=== PATIENT | female | born 1935 | race Caucasian/White ===

== ENCOUNTER 2019-02-13 10:38 | Inpatient (IN) | payer OTHER ==
[~2019-02-13] VITALS: Ht 157.5 cm; Wt 81.6 kg
--- NOTE | 2019-02-13 11:02 | NUR ---
PT BIB [facility] FOR GENERALIZED WEAKNESS AND UTI SYMPTOMS X 3 DAYS. 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 PT AAOX3 CONFUSED TO SITUATION FOLLOWS COMMANDS. NO NEURO DEFICITS, PT GOWNED PLACED ON FULL CM NO DISTRESS. AWAITING EVAL AND ORDERS. WILL MONITOR.
--- NOTE | 2019-02-13 11:37 | NUR ---
PT WITH URGE TO VOID, BED ECKERT PLACED UNDER PT.
--- NOTE | 2019-02-13 11:55 | NUR ---
URINE COLLECTED SENT TO LAB
--- NOTE | 2019-02-13 12:11 | NUR ---
EKG IN PROGRESS
[2019-02-13 12:23] LABS: AMPHETAMINE QUAL UR NONE DETECTED (See below)
[2019-02-13 12:26] LABS: CALCIUM 8.5 mg/dL (8.5-10.1); CARBON DIOXIDE 25.7 mmol/L (21-32); CHLORIDE SERUM 103 mmol/L (98-107); CREATININE SERUM 0.6 mg/dL (0.6-1.0); GLUCOSE SERUM 108 mg/dL (74-106); POTASSIUM SERUM 3.3 mmol/L (3.5-5.1); SODIUM SERUM 139 mmol/L (136-145)
[2019-02-13 12:27] LABS: microscopic required? YES; urine erythrocyte TRACE (NEGATIVE)
--- NOTE | 2019-02-13 12:35 | NUR ---
IVF AND ANTIBIOTIC INFUSION ORDERED BY MD INFUSING WITH NO PROBLEM
[2019-02-13 12:37] LABS: ALBUMIN 3.7 g/dL (3.4-5.0); ALKALINE PHOSPHATASE 98 U/L (46-116); ALT/SGPT 37 U/L (14-59); AST/SGOT 24 U/L (15-37); BILIRUBIN TOTAL 0.85 mg/dL (0.20-1.00); HDL CHOLESTEROL 53 mg/dL (40-60); LIPASE 47 IU/L (73-393); MAGNESIUM 1.8 mg/dL (1.8-2.4); TOTAL PROTEIN, SERUM 7.7 g/dL (6.4-8.2)
[2019-02-13 12:40] LABS: CHOLESTEROL 97 mg/dL (<200)
--- NOTE | 2019-02-13 13:18 | NUR ---
PT WARM TO TOUCH. ORAL TEMPERATURE CHECKED 100.7, MD MADE AWARE.
--- NOTE | 2019-02-13 13:18 | NUR ---
PT REPORTS THAT SHE IS UNCOMFORTABLE IN [facility]. PT ASSISTED TO CHAIR AT BEDSIDE. PT'S DAUGHTERS REMAIN AT BEDSIDE.
[2019-02-13 13:24] LABS: BASOPHIL % 0.4 % (0-2); PLATELET COUNT 236 x10^3mcL (130-400); RED CELL DISTRIBUTION WIDTH 12.9 % (11.5-14.5)
--- NOTE | 2019-02-13 13:40 | NUR ---
ALL BLANKETS REMOVED FROM PT. DR PRO AWARE OF PTS TEMP OF 100.7 NO ORDERS GIVEN AT THIS TIME. WILL CONTINUE TO MONITOR
--- NOTE | 2019-02-13 14:55 | NUR ---
PER DAUGHTER PT HAS " A LOT OF BODY PAIN" PT NOTED TO BE SLEEPING HOWEVER PER DAUGHTER SHE WOULD LIKE HER MOTHER MEDICATED WITH A "SMALL DOSE OF MORPHINE" SO SHE CAN BE COMFORTABLE, ADVISED DAUGHTER I WOULD SPEAK TO ER MD REGARDING HER REQUEST.
--- NOTE | 2019-02-13 15:06 | NUR ---
PT MEDICATED WITH TORADOL 15MG IVP PER DR PRO ORDERS FAMILY MADE AWARE, INFLUENZA SPECIMEN COLLECTED AND SENT TO LAB
--- NOTE | 2019-02-13 15:18 | NUR ---
REPORT SULTANA GILLILAND RESUMING CARE OF PT AT THIS TIME
--- NOTE | 2019-02-13 15:19 | NUR ---
RECEIVED PT VIA GURNEY FROM E/D, ACCOMPANIED BY RN, TRANSPORTER, PT'S DAUGHTER AND . PT AWAKE, ORIENTED X 1 (PERSON ONLY), SLOW SPEECH, SHORT TERM MEMORY IMPAIRMENT, FLAT AFFECT; PT ABLE TO STATE BASIC NEEDS; STATED THAT SHE WANTED TO GO TO THE RESTROOM TO URINATE. DAUGHTER AND PROCEEDED TO HELP PT GET UP, BUT NOTED THAT PT IS MOSTLY WEIGHT AND ABLE TO TAKE SHUFFLING STEPS W/ UNSTEADY GAIT, REQUIRING MINIMUM OF THREE PEOPLE TO ASSIST. PT IS AMBULATORY W/ 1-PERSON ASSIST AT BASELINE. BSC WAS GIVEN INSTEAD. FALL RISK PROTOCOL IN PLACE. ON TELE # 1, SR + 1ST DEG AVB, HR 83, DENIES CHEST PAIN OR DISCOMFORT AT THIS TIME. SCD BY BEDSIDE. LUNGS DIM, CHEST RISING EVENLY, R/A, 94%, ORTHOPNEA, NO ACUTE RESPIRATORY DISTRESS NOTED. ABD SOFT, ROUND, NON-TENDER, NORMOACTIVE BOWEL SOUNDS X 4 QUADS, LAST BM 02/13/19, DIARRHEA; ASPIRATION RISK PROTOCOL IN PLACE D/T EPISODES OF CHOKING ON PILLS; CRUSH PILLS & MIX W/ APPLE SAUCE; POOR PO INTAKE > 3 DAYS. EPISODES OF URGE/STRESS INCONTINENCE, ALONG W/ FREQUENCY AND DYSURIA. IV SITE RAC 20G, CDI. PT UNABLE TO PARTICIPATE IN ANY LEARNING ACTIVITY THIS TIME D/T ALOC. SIDE RAILS UP X 2, BED IN LOW POSITION, CALL LIGHT WITHIN REACH. WILL ENDORSE TO DARSHANA VALERO.
--- NOTE | 2019-02-13 16:01 | NUR ---
PATIENT BP WAS 190/83 MAP 108 HR 83, MEDICATED PATIENT WITH CLONIDINE .1MG PO PER PROTOCOL, PATIENT TOLERATED PO MEDICATION. WILL REASSESS BP, AND MONITOR FOR CHANGES.
[2019-02-13 16:11] VITALS: BP 190/83
[2019-02-13 17:01] VITALS: BP 138/65
--- NOTE | 2019-02-13 17:01 | NUR ---
PATIENT BP TRENDED DOWN TO 138/65 MAP 81 HR 71, NO ACUTE DISTRESS NOTED. PATIENT IS STABLE, WILL CONTINUE TO MONITOR FOR CHANGES.
--- NOTE | 2019-02-13 18:30 | NUR ---
PATIENT RESTING IN BED, NO ACUTE DISTRESS NOTED. PATIENT DENIES PAIN. TELE MONITOR IN PLACE. NO RESP DISTRESS, PATIENT ON ROOM AIR. ANTIBIOTICS INFUSING TO RAC, IV SITE CDI & PATENT, NO S/S OF INFILTRATION. CALL LIGHT WITHIN REACH, BED IN LOW POSITION. WILL ENDORSE REPORT TO NIGHT RN.
--- NOTE | 2019-02-13 19:30 | NUR ---
RECEIVED REPORT FROM SULTANA GILLILAND. PT WAS SLEEPING IN BED AT THIS TIME WITH DAUGHTER AT BEDSIDE. PT IS AAOX1-PERSON. PT HAS SLOW SPEECH AND IS BAHAMIAN SPEAKING. PT HAS A FLAT AFFECT. PT DENIES HEADACHE OR DIZZINESS AT THIS TIME. PT IS ON TELE #1, NSR WITH HR 80. PT DENIES CHEST PAIN OR PRESSURE AT THIS TIME. PT PULSES ARE PALPABLE AND CAP REFILL <3 SEC. PT HAS BILATERAL DIMINISHED LUNG SOUNDS ON RA. PT HAS ORTHOPNEA. PT DENIES SOB OR RESPIRATORY DISTRESS AT THIS TIME. PT ABD IS SOFT AND ROUND. PT BOWEL SOUNDS ACTIVE X4. PT LBM-02/13/19, DIARRHEA. PT DENIES N/V AT THIS TIME. PT HAS A POOR INTAKE AND IS ON ASPIRATION PRECAUTIONS AT THIS TIME. PT HAS EPISODES OF URGE/STRESS INCONTINENCE, FREQUENCY, AND DYSURIA. PT HAS GENERALIZED WEAKNESS AND IS BEDBOUND AT THIS TIME. PT SKIN IS WARM, DRY, AND INTACT. PT IV IS PATENT AND WNL. CALL LIGHT WITHIN REACH. BED IN LOWEST POSITION. SIDE RAILS X2 UP. WILL CONTINUE TO MONITOR.
[2019-02-13 21:42] VITALS: BP 143/56
--- NOTE | 2019-02-13 22:15 | NUR ---
PT HAD ORAL TEMP OF 101.3F. PER MAR, ADMINISTERED TYLENOL FOR TEMP >100.4F. ALSO REMOVED LAYERS OF BLANKETS AND TURNED ON AC FOR COOLING MEASURES. WILL REASSESS TEMP IN ONE HOUR.
--- NOTE | 2019-02-13 23:55 | NUR ---
REASSESSED PT TEMP ORALLY AFTER COOLING MEASURES WERE IMPLEMENTED AND TYLENOL WAS GIVEN. TEMP HAS DECREASED TO 99.9F. WILL CONTINUE TO MONITOR.
--- NOTE | 2019-02-14 04:36 | NUR ---
PT IS SLEEPING. BREATHING IS EVEN AND UNLABORED. IVF INFUSING WELL. FAMILY AT BEDSIDE. CALL LIGHT WITHIN REACH. BED IN LOWEST POSITION. SIDE RAILS X2 UP. WILL CONTINUE TO MONITOR.
--- NOTE | 2019-02-14 05:02 | NUR ---
PT SLEPT THROUGHOUT THE NIGHT. FAMILY AT BEDSIDE DURING THE SHIFT. PT COMPLIED WITH NURSING CARE THROUGHOUT THE SHIFT. PT HAD A FEVER OF 101.3F, BUT IT DECREASED TO 99.9F AFTER COOLING MEASURES WERE IMPLEMENTED AND TYLENOL WAS ADMINISTERED PER MAY. ROUTINE MEDS WERE ADMINISTERED PER MAY AND TOLERATED WELL. COMFORT AND SAFETY MEASURES WERE MAINTAINED DURING THE SHIFT. ALL QUESTIONS AND CONCERNS ADDRESSED. WILL ENDORSE CARE TO DAY SHIFT NURSE. WILL CONTINUE TO MONITOR.
[2019-02-14 05:31] VITALS: BP 148/67
[2019-02-14 06:41] LABS: BASOPHIL % 0.4 % (0-2); PLATELET COUNT 191 x10^3mcL (130-400); RED CELL DISTRIBUTION WIDTH 12.7 % (11.5-14.5)
--- NOTE | 2019-02-14 07:10 | NUR ---
RECEIVED PATIENT FROM PROFESSOR OF JOURNALISM NURSE, NAN, C/O GENERALIZED WEAKNESS. POTASSIUM RESULTS CAME IN WITH 2.9. CALLED DR. PANCHAL AND REPORTED K RESULTS. T.O. KCL +LIDOCAINE 40MEQ, WITH KCL 40MEQ TAB PO. VITAL SIGNS BP 137/87, HR 66, T 98F, 93% O2 SAT. CALL LIGHT WITHIN REACH. BED AT LOWEST POSITION.
[2019-02-14 07:12] LABS: ALKALINE PHOSPHATASE 83 U/L (46-116); ALT/SGPT 46 U/L (14-59); AST/SGOT 39 U/L (15-37); BILIRUBIN TOTAL 0.8 mg/dL (0.20-1.00); CALCIUM 8.1 mg/dL (8.5-10.1); CARBON DIOXIDE 23.8 mmol/L (21-32); CHLORIDE SERUM 104 mmol/L (98-107); CREATININE SERUM 0.7 mg/dL (0.6-1.0); GLUCOSE SERUM 113 mg/dL (74-106); MAGNESIUM 1.8 mg/dL (1.8-2.4); SODIUM SERUM 139 mmol/L (136-145); TOTAL PROTEIN, SERUM 6.5 g/dL (6.4-8.2)
[2019-02-14 07:14] LABS: ALBUMIN 3.1 g/dL (3.4-5.0)
[2019-02-14 07:15] LABS: POTASSIUM SERUM 2.9 mmol/L (3.5-5.1)
--- NOTE | 2019-02-14 07:24 | NUR ---
RECEIVED FROM ROBOTIC MACHINE OPERATOR NURSE LOW POTASSIUM LAB RESULTS 2.[address] PANCHAL ABOUT POTASSIUM RESULTS. T.O KCL +LIDOCAINE 40MEQ/L AT 65CC/HR AND KCL TABLET 40MEQ.
[2019-02-14 08:52] VITALS: BP 137/87
--- NOTE | 2019-02-14 10:28 | NUR ---
SEEN PATIENT LYING DOWN AOX PERSON AND PLACE. PATIENT FEELS WEAK. PO MEDICATIONS GIVEN. KCL +LIDOCAINE INFUSING AT 65CC/HR IVPB. TOLERATED PO MEDICATIONS. IV INTACT AND PATENT . NO REDNESS OR INFILTRATION. CALL LIGHT WITHIN REACH . BED AT LOWEST POSITION.
--- NOTE | 2019-02-14 11:45 | NUR ---
SEEN PATIENT LYING DOWN , CHILLS AND C/O BACK PAIN ASSOCIATED WITH DYSURIA. 10/09. HYDROCODONE GIVEN FOR BACK PAIN. CALL LIGHT WITHIN REACH . BED AT LOWEST POSITION.
--- NOTE | 2019-02-14 12:02 | NUR ---
SEEN PATIENT WITH CHILLS, BACK PAIN AND DYSURIA 10/09. BLANKET PROVIDED. DR PANCHAL MADE AWARE OF SIDE EFFECT OF CODEINE ON PATIENT, NERVOUSNESS AND VOMITING. HYDROCODONE DISCONTINUED. TORADOL 15MG IV GIVEN Q6H T.O. PER DR PANCHAL.
--- NOTE | 2019-02-14 12:29 | NUR ---
SEEN LYING DOWN AOX4, MILD CHILLS, TORADOL IVP GIVEN. NO C/O PAIN AT BACK. DEFECATED WITH BROWN WATERY STOOL. AFTER CARE DONE BY S.O. ACCUCHECK DONE WITH CBG 114. NO INSULIN NEEDED. CALL LIGHT WITHIN REACH BED AT LOWEST POSITION.
--- NOTE | 2019-02-14 15:56 | NUR ---
SEEN PATIENT AOX4, NO SUBJECTIVE COMPLAINTS, NO CHILLS , NO PAIN. VANCOMYCIN TROUGH AT 10.6. CALLED PHARMACY AND VERIFIED TO GIVE VANCOMYCIN IVPB. VANCOCIN INFUSING WELL WITH NO REDNESS OR INFILTRATION AT IV SITE. ACCUCHECK DONE WITH CBG 135. CALL LIGHT WITHIN REACH. BED AT LOWEST POSITION.
[2019-02-14 17:00] VITALS: BP 119/48
--- NOTE | 2019-02-14 18:29 | NUR ---
SEEN PATIENT AOX4, NO SUBJECTIVE COMPLAINTS. IV ZOSYN MEDICATIONS GIVEN AT 100CC/HR. IV PATENT AND INFUSING WELL. NO REDNESS OR INFILTRATION. CALL LIGHT WITHIN REACH. BED AT LOWEST POSITION.
--- NOTE | 2019-02-14 19:15 | NUR ---
RECEIVED PT IN BED RESTING WITH FAMILY AT BEDSIDE.LUNG SOUND CTA. BREATHING EVEN AND UNLABORED. DENIES ANY PAIN AT THIS TIME.IV SITE PATENT AND INTACT. BED IN LOWEST POSITION.CALL LIGHT WITHIN REACH. WILL CONTINUE TO MONITOR.
[2019-02-14 20:27] VITALS: BP 152/69
--- NOTE | 2019-02-14 21:19 | NUR ---
PT C/O PAIN UPON URINATION. MEDICATED TORADOL 15MG IVP ORDERED. WILL CONTINUE TO MONITOR.
--- NOTE | 2019-02-14 22:06 | NUR ---
PT ASLEEP. NO C/O PAIN AT THIS TIME. DAUGHTER AT BEDSIDE. WILL CONTINUE TO MONITOR.
[2019-02-14 22:12] VITALS: Ht 157.5 cm; Wt 81.6 kg
[2019-02-15 05:03] VITALS: BP 145/62
--- NOTE | 2019-02-15 05:08 | NUR ---
PT APPEARS TO BE SLEEPING.NO DISTRESS NOTED. NO INDICATION OF PAIN AT THIS TIME.BED IN LOWEST POSITION,CALL LIGHT WITHIN REACH. WILL CONTINUE TO MONITOR.
[2019-02-15 06:11] LABS: BASOPHIL % 0.5 % (0-2); PLATELET COUNT 196 x10^3mcL (130-400); RED CELL DISTRIBUTION WIDTH 12.8 % (11.5-14.5)
[2019-02-15 06:12] LABS: ALKALINE PHOSPHATASE 80 U/L (46-116); ALT/SGPT 46 U/L (14-59); AST/SGOT 34 U/L (15-37); CARBON DIOXIDE 24.9 mmol/L (21-32); CHLORIDE SERUM 107 mmol/L (98-107); CREATININE SERUM 0.8 mg/dL (0.6-1.0); GLUCOSE SERUM 135 mg/dL (74-106); MAGNESIUM 1.9 mg/dL (1.8-2.4); POTASSIUM SERUM 3.3 mmol/L (3.5-5.1); SODIUM SERUM 142 mmol/L (136-145); TOTAL PROTEIN, SERUM 6.6 g/dL (6.4-8.2)
[2019-02-15 06:32] LABS: ALBUMIN 3.1 g/dL (3.4-5.0)
--- NOTE | 2019-02-15 06:32 | NUR ---
PT C/O PAIN UPON URINATION. MEDICATED TYLENOL 650MG PO ORDERED. WILL CONTINUE TO MONITOR.
--- NOTE | 2019-02-15 07:10 | NUR ---
RECEIVED PATIENT FROM QUOTATION CHECKER NURSE. SEEN LYING DOWN AWAKE, COHERENT AND RESPONSIVE. MEDSURG. C/O NUMBING LEG PAIN. SCD IN PLACE. PATIENT VERBALIZED PAIN TO BE BETTER. IV INTACT AND INFUSING WELL. NO REDNESS OR INFILTRATION. CALL LIGHT WITHIN REACH. BED AT LOWEST POSITION.
--- NOTE | 2019-02-15 07:22 | NUR ---
SPOKE TO DR FERGUSON REGARDING K:3.3. NEW ORDER GIVEN AND CARRIED OUT.
--- NOTE | 2019-02-15 07:23 | NUR ---
CARE ENDORSED TO DAY NURSE RAPHAEL.
[2019-02-15 07:45] LABS: CALCIUM 8.8 mg/dL (8.5-10.1)
[2019-02-15 08:32] VITALS: BP 132/60
--- NOTE | 2019-02-15 09:38 | NUR ---
DR. FERGUSON SEEN PATIENT AND DISCUSSED ON PHYSICAL THERAPY. RESULTS SHOWN MAGNESIUM 1.8MG/DL. ORDERED MAGNESIUM FOR LOW RESULTS.
--- NOTE | 2019-02-15 14:02 | NUR ---
SEEN PATIENT AOX4, NO SUBJECTIVE COMPLAINTS OF PAIN, DYSURIA, HAS INCONTINENCE. BP 136/57, HR 63. NIFEDIPINE GIVEN PO. CALL LIGHT WITHIN REACH . BED AT LOWEST POSITION
[2019-02-15 16:30] VITALS: BP 134/54
--- NOTE | 2019-02-15 16:44 | NUR ---
SEEN PATIENT AOX4, C/O INCONTINENCE. QUESTIONS ADDRESSED TO FAMILY MEMBERS. ACCUCHECK DONE WITH SBG 119. NO INSULIN NEEDED. CALL LIGHT WITHIN REACH . BED AT LOWEST POSITION.
--- NOTE | 2019-02-15 19:15 | NUR ---
PT RECEIVED A/O X2, FORGETFUL AND CONFUSED, DJIBOUTIAN SPEAKING, ABLE TO MAKE NEEDS KNOWN. MED-SURG, DENIES ANY CP/PRESSURE. PULSES PALPABLE, NO EDEMA PRESENT. BREATHING IS EVEN AND UNLABORED, NO RESP DISTRESS NOTED. ABD SOFT AND ROUND, DENIES N/V. VOIDS FREELY VIA BEDPAN, PT REPORTS URINARY FREQUENCY/URGENCY. GENERALIZED WEAKNESS. SKIN IS WARM AND DRY, INTACT. PT DENIES HAVING ANY PAINA T THIS TIME. IV TO RAC, PATENT AND INTACT. NO ACUTE DISTRESS NOTED. DAUGHTER AT BEDSIDE. BED IN LOWEST SETTING, SIDE RAILS UP X2, CALL LIGHT WITHIN REACH. WILL CONT TO MONITIOR.
[2019-02-15 20:23] VITALS: BP 150/61
--- NOTE | 2019-02-15 22:32 | NUR ---
PER PT'S DAUGHTER, PT IS HAVING A DIFFICULT TIME FALLING ASLEEP. PRN AMBIEN GIVEN ORDERED. PT'S DAUGHTER REQUESTING ONLY HALF THE DOSE BE GIVEN AND STATES, "THE WHOLE DOSE IS TOO STRONG FOR HER." PER DR COTA, OKAY TO ONLY GIVE HALF THE ORDERED DOSE.
--- NOTE | 2019-02-16 01:25 | NUR ---
PT CONT TO C/O DIFFICULTY SLEEPING. PRN AMBIEN GIVEN ORDERED. NO ACUTE DISTRESS NOTED. CALL LIGHT WITHIN REACH. DAUGHTER AT BEDSIDE. WILL CONT TO MONITOR.
--- NOTE | 2019-02-16 02:18 | NUR ---
PER PT'S DAUGHTER, IV SITE IS LEAKING. IV TO RAC, DC'd, CATH INTACT. ATTEMPTED IV REINSERTION X2 WITH NO SUCCESS. PER PT'S DAUGHTER, "CAN YOU TRY ANOTHER TIME? SHE'S REALLY TIRED AND NEEDS HER SLEEP." EDUCATED PT AND DAUGHTER ON NEED FOR IV INSERTION, DAUGHTER VERBALIZES UNDERSTANDING, BUT INSISTENT OF REINSERTION AT A LATER TIME. NO IV SITE PRESENT. WILL REATTEMPT LATER PER PT'S REQUEST. NO ACUTE DISTRESS NOTED. WILL CONT TO MONITOR.
--- NOTE | 2019-02-16 05:02 | NUR ---
ATTEMPTED TO REINSERT IV, BUT PT'S DAUGHTER REFUSED AT THIS TIME. PER PT'S DAUGHTER, "SHE JUST HAD HER BLOOD DRAWN, AND SHE'S TIRED OF GETTING POKED. I JUST WANT HER TO GET A LITTLE MORE SLEEP BEFORE YOU GUYS TRY AGAIN." EDUCATED PT AND DAUGHTER THAT PT WILL HAVE IV ABX DUE TODAY AT 0900 AND WILL NEED IV ACCESS. PER DAUGHTER, "THAT'S FINE, YOU CAN TRY AGAIN AT 8:00 AFTER SHE GETS MORE REST." NO IV PRESENT AT THIS TIME DUE TO PT AND DAUGHTER REQUESTING IV REINSERTION AT A LATER TIME. CHARGE NURSE AWARE, WILL ENDORSE TO AM NURSE.
[2019-02-16 05:33] VITALS: BP 142/64
[2019-02-16 06:35] LABS: CALCIUM 8.6 mg/dL (8.5-10.1); CARBON DIOXIDE 24.2 mmol/L (21-32); CHLORIDE SERUM 109 mmol/L (98-107); CREATININE SERUM 0.6 mg/dL (0.6-1.0); GLUCOSE SERUM 98 mg/dL (74-106); MAGNESIUM 1.9 mg/dL (1.8-2.4); POTASSIUM SERUM 3.6 mmol/L (3.5-5.1); SODIUM SERUM 143 mmol/L (136-145)
--- NOTE | 2019-02-16 06:41 | NUR ---
PT SLEPT AT INTERVALS THROUGHOUT THE EVENING. BREATHING IS EVEN AND UNLABORED, NO RESP DISTRESS NOTED. PT DENIES HAVING ANY PAIN AT THIS TIME. NO IV ACCESS PRESENT AT THIS TIME, PT AND DAUGHTER ARE REQUESTING IV RESINSERTION AT A LATER TIME. NO ACUTE CHANGES ENCOUNTERED DURING SHIFT. ALL NEEDS MET AND ANTICIPATED. DAUGHTER AT BEDSIDE. CALL LIGHT WITHIN REACH. WILL ENDORSE CARE TO AM NURSE.
--- NOTE | 2019-02-16 07:10 | NUR ---
SEEN PATIENT AOX4, RESPONSIVE, NOT IN APPARENT DISTRESS. MED SURG, NO C/O PAIN AND DYSURIA. QUESTIONS ADDRESSED REGARDING IV MEDICATION AND IV SITE. CALL LIGHT WITHIN REACH. BED AT LOWEST POSITION.
--- NOTE | 2019-02-16 07:40 | NUR ---
PT IN NO ACUTE DISTRESS. CONT OF CARE ENDORSED TO AM NURSE. ALL QUESTIONS AND CONCERNS ADDRESSED.
[2019-02-16 08:59] VITALS: BP 176/66
--- NOTE | 2019-02-16 09:28 | NUR ---
SEEN PATIENT LYING DOWN, NOT IN DISTRESS, NO SUBJECTIVE COMPLAINTS.PO MEDICATIONS GIVEN. REFUSED COLASE DUE TO ABLE TO DEFECATE WITH NO PROBLEMS. BP 178/78 HR 64. CARVEDILOL PO GIVEN. HEPARIN GIVEN SQ. TOLERATED MEDICATIONS. CALL LIGHT WITHIN REACH. BED AT LOWEST POSITION.
--- NOTE | 2019-02-16 09:35 | NUR ---
DR. FERGUSON MADE AWARE ABOUT IV ACCESS AND IV ROCEPHIN. PER DR. FERGUSON SAID PATIENT IS GOING TO BE DISCHARGED. WILL SEND PATIENT WITH PO MEDICATIONS INSTEAD.
[2019-02-16] MEDS ORDERED: CEPHALEXIN500 MG PO (09:48)
[2019-02-16] MEDS ORDERED: MAGNESIUM OXID400 MG PO (09:49)
[2019-02-16 10:16] VITALS: BP 178/78
[2019-02-16 10:29] VITALS: BP 149/73
--- NOTE | 2019-02-16 11:19 | NUR ---
DISCHARGE INSTRUCTIONS GIVEN. PATIENT'S DAUGHTER REQUESTED DANTROLENE MEDICATION FROM DR. FERGUSON. DR. JUAREZ NOTIFIED . PER DR. JUAREZ T.O. WRITTEN PRESCRIPTION OF DISCHARGE MEDICATIONS. EDUCATION GIVEN.
--- NOTE | 2019-02-16 12:04 | NUR ---
CALLED AND SPOKE TO RE-DAUGHTER'S CONCERN OF PT URINARY FREQUENCY IN SPITE OF DANTROLENE THAT HAD STARTED YESTERDAY, PRESCRIPTION WAS GIVEN TO FAMILY AND EXPLAINED TO DAUGHTER THAT TO SPEAK TO PCP OF FURTHER CONCERN IF DANTROLENE IS NOT HELPING WITH FREQUENCY AND THAT HAD RECOMMENDED TO DAUGHTER TO SPEAK TO PCP TO GET A REFERRAL FROM PRIMARY CARE DOCTOR TO A UROLOGIST. DAUGHTER HAD VERBALIZED UNDERSTANDING AND SAID THAT PT HAS AN APPT TO SEE PCP THIS COMING SUNDAY. PT DISCHARGE VIA WHEELCHAIR WITH FAMILY MEMBER AND NO PROBLEM ENCOUNTERED DURING DISCHARGED AND QUESTIONS WHERE ALL ANSWERED. JOSÉ MIGUEL RN ASSIGNED TO THIS PT WITH ME DURING EXPLANATION.
--- NOTE | 2019-02-16 12:30 | NUR ---
SEEN PATIENT DISCHARGED PER WHEELCHAIR ACCOMPANIED BY DAUGHTER AND RN JOSÉ MIGUEL. PATIENT BELONGINGS WITH FAMILY. DISCHARGE INSTRUCTIONS GIVEN.
== END 2019-02-16 12:05 | disposition home or self-care (01) | DRG 872 ==
LOC: ED 10:38 → MU 14:41 → DU 14:41 → MU 02-14 06:42
PROVIDERS: Emergency Medicine; Internal Medicine Pulmonary Disease; ADMIT Internal Medicine Pulmonary Disease
DX: A41.9 Sepsis, unspecified organism (principal); N39.0 Urinary tract infection, site not specified; I69.351 Hemiplegia and hemiparesis following cerebral infarction affecting right dominant side; E87.3 Alkalosis; E11.9 Type 2 diabetes mellitus without complications; E83.42 Hypomagnesemia; E87.6 Hypokalemia; N32.81 Overactive bladder; E78.00 Pure hypercholesterolemia, unspecified; I10 Essential (primary) hypertension; E66.9 Obesity, unspecified; Z68.32 Body mass index [BMI] 32.0-32.9, adult; Z79.84 Long term (current) use of oral hypoglycemic drugs; G30.0 Alzheimer's disease with early onset; F02.80 Dementia in other diseases classified elsewhere, unspecified severity, without behavioral disturbance, psychotic disturbance, mood disturbance, and anxiety
CPT/HCPCS: 36600; 82962; 83880; 87804; 97110-GP; 97116-GP; 97530-GP; G0378; G0480; J0696; J1644; J1885; J1956; J2543; J3370; J3475; J3480; J7030; J7120; Q0092

== ENCOUNTER 2019-03-28 10:39 | Emergency (ER) | payer OTHER ==
[~2019-03-28] VITALS: Ht 157.5 cm; Wt 81.6 kg
[~2019-03-28 10:39] MED LIST: CEPHALEXIN500 MG PO; MAGNESIUM OXID400 MG PO
[2019-03-28 10:44] VITALS: Ht 157.5 cm; Wt 81.6 kg
[2019-03-28 11:31] LABS: microscopic required? NO
[2019-03-28 11:35] LABS: UA SPECIFIC GRAVITY 1.015 (1.005-1.035); urine erythrocyte NEGATIVE (NEGATIVE)
[2019-03-28 11:54] LABS: BASOPHIL % 0.4 % (0-2); PLATELET COUNT 313 x10^3mcL (130-400); RED CELL DISTRIBUTION WIDTH 13.3 % (11.5-14.5)
[2019-03-28 11:55] LABS: CALCIUM 9.8 mg/dL (8.5-10.1); CARBON DIOXIDE 28.2 mmol/L (21-32); CHLORIDE SERUM 103 mmol/L (98-107); CREATININE SERUM 0.7 mg/dL (0.6-1.0); GLUCOSE SERUM 122 mg/dL (74-106); SODIUM SERUM 141 mmol/L (136-145)
[2019-03-28 12:00] LABS: ALBUMIN 4.3 g/dL (3.4-5.0); ALKALINE PHOSPHATASE 140 U/L (46-116); ALT/SGPT 62 U/L (14-59); AST/SGOT 31 U/L (15-37); BILIRUBIN TOTAL 0.49 mg/dL (0.20-1.00); TOTAL PROTEIN, SERUM 7.9 g/dL (6.4-8.2)
[2019-03-28] MEDS ORDERED: CARVEDILOL25 M1 PO (12:43)
[2019-03-28] MEDS ORDERED: LIPI20 PO (12:44)
[2019-03-28] MEDS ORDERED: JANUVIA100 M1 PO (12:45)
[2019-03-28] MEDS ORDERED: FOSAMAX70 M1 PO (12:46)
[2019-03-28] MEDS ORDERED: MYRBETRIQ25 MG PO (12:47)
[2019-03-28] MEDS ORDERED: MASON NATURAL1000 IU PO (12:47)
[2019-03-28] MEDS ORDERED: AMLODIPINE BESY10 M2 PO (12:47)
[2019-03-28] MEDS ORDERED: POTASSIUM GLUC500 MG PO (12:48)
[2019-03-28 13:24] VITALS: BP 130/55
== END 2019-03-28 13:24 | disposition home or self-care (01) ==
LOC: ED 10:39
PROVIDERS: Emergency Medicine
DX: R53.1 Weakness (principal); R21 Rash and other nonspecific skin eruption; M79.604 Pain in right leg; M79.605 Pain in left leg; R06.02 Shortness of breath
CPT/HCPCS: 36415

== ENCOUNTER 2019-06-13 11:24 | Inpatient (IN) | payer OTHER ==
[~2019-06-13] VITALS: Ht 157.5 cm; Wt 77.6 kg
[~2019-06-13 11:24] MED LIST changes: +AMLODIPINE BESY10 M2 PO; +CARVEDILOL25 M1 PO; +FOSAMAX70 M1 PO; +JANUVIA100 M1 PO; +LIPI20 PO; +MASON NATURAL1000 IU PO; +MYRBETRIQ25 MG PO; +POTASSIUM GLUC500 MG PO
[2019-06-13 11:50] VITALS: Ht 157.5 cm; Wt 77.6 kg
[2019-06-13 12:41] LABS: BASOPHIL % 0.4 % (0-2); PLATELET COUNT 303 x10^3mcL (130-400); RED CELL DISTRIBUTION WIDTH 12.8 % (11.5-14.5)
[2019-06-13 12:52] LABS: CARBON DIOXIDE 26.3 mmol/L (21-32); CHLORIDE SERUM 108 mmol/L (98-107); CREATININE SERUM 0.7 mg/dL (0.6-1.0); GLUCOSE SERUM 143 mg/dL (74-106); POTASSIUM SERUM 3.6 mmol/L (3.5-5.1); SODIUM SERUM 145 mmol/L (136-145)
[2019-06-13 12:57] LABS: ALBUMIN 3.8 g/dL (3.4-5.0); ALKALINE PHOSPHATASE 108 U/L (46-116); ALT/SGPT 47 U/L (14-59); AST/SGOT 32 U/L (15-37); BILIRUBIN TOTAL 0.5 mg/dL (0.20-1.00); TOTAL PROTEIN, SERUM 7.3 g/dL (6.4-8.2)
[2019-06-13 17:53] LABS: microscopic required? NO
[2019-06-13 17:57] LABS: UA SPECIFIC GRAVITY >=1.030 (1.005-1.035); urine erythrocyte NEGATIVE (NEGATIVE)
[2019-06-13 18:37] LABS: CHOLESTEROL/HDL RATIO 3.1
[2019-06-13 20:08] VITALS: BP 207/90
[2019-06-14 06:29] VITALS: BP 165/77
[2019-06-14 07:08] LABS: BASOPHIL % 0.2 % (0-2); PLATELET COUNT 309 x10^3mcL (130-400); RED CELL DISTRIBUTION WIDTH 12.9 % (11.5-14.5)
[2019-06-14 07:13] LABS: CHLORIDE SERUM 107 mmol/L (98-107); CREATININE SERUM 0.6 mg/dL (0.6-1.0); GLUCOSE SERUM 174 mg/dL (74-106); MAGNESIUM 1.7 mg/dL (1.8-2.4); PHOSPHOROUS 2.9 mg/dL (2.5-4.9); POTASSIUM SERUM 3.5 mmol/L (3.5-5.1); SODIUM SERUM 143 mmol/L (136-145)
[2019-06-14 09:01] VITALS: BP 172/90
[2019-06-14 12:05] VITALS: BP 138/70
[2019-06-14 17:19] VITALS: BP 151/68
[2019-06-14 20:50] VITALS: BP 163/64
[2019-06-15 05:50] VITALS: BP 166/69
[2019-06-15 06:48] LABS: BASOPHIL % 0.4 % (0-2); PLATELET COUNT 259 x10^3mcL (130-400); RED CELL DISTRIBUTION WIDTH 12.8 % (11.5-14.5)
[2019-06-15 07:26] LABS: CALCIUM 8.3 mg/dL (8.5-10.1); CARBON DIOXIDE 25.2 mmol/L (21-32); CHLORIDE SERUM 107 mmol/L (98-107); CREATININE SERUM 0.7 mg/dL (0.6-1.0); GLUCOSE SERUM 106 mg/dL (74-106); MAGNESIUM 1.9 mg/dL (1.8-2.4); PHOSPHOROUS 2.5 mg/dL (2.5-4.9); POTASSIUM SERUM 3.4 mmol/L (3.5-5.1); SODIUM SERUM 143 mmol/L (136-145)
[2019-06-15 12:18] VITALS: BP 174/73
[2019-06-15 16:31] VITALS: BP 191/75
[2019-06-15 21:27] VITALS: BP 213/85
[2019-06-16 05:43] VITALS: BP 180/59
[2019-06-16 06:23] LABS: BASOPHIL % 0.6 % (0-2); PLATELET COUNT 265 x10^3mcL (130-400); RED CELL DISTRIBUTION WIDTH 13.1 % (11.5-14.5)
[2019-06-16 06:48] LABS: CALCIUM 8.4 mg/dL (8.5-10.1); CARBON DIOXIDE 26.3 mmol/L (21-32); CHLORIDE SERUM 109 mmol/L (98-107); CREATININE SERUM 0.6 mg/dL (0.6-1.0); GLUCOSE SERUM 94 mg/dL (74-106); MAGNESIUM 1.8 mg/dL (1.8-2.4); PHOSPHOROUS 2.9 mg/dL (2.5-4.9); POTASSIUM SERUM 3.2 mmol/L (3.5-5.1); SODIUM SERUM 144 mmol/L (136-145)
[2019-06-16 08:21] VITALS: BP 140/55
[2019-06-16 16:00] VITALS: BP 115/52
[2019-06-16 17:25] VITALS: BP 115/52
[2019-06-16] MEDS ORDERED: DITROPAN XL5 MG PO (18:16)
== END 2019-06-16 19:17 | disposition home or self-care (01) | DRG 915 ==
LOC: ED 11:24 → DU 17:23 → EDBEDREQ 17:38 → DU 19:14
PROVIDERS: Emergency Medicine; ADMIT Family Medicine
DX: T78.3XXA Angioneurotic edema, initial encounter (principal); G92 Toxic encephalopathy; N17.0 Acute kidney failure with tubular necrosis; T42.4X5A Adverse effect of benzodiazepines, initial encounter; N32.81 Overactive bladder; R29.810 Facial weakness; E11.9 Type 2 diabetes mellitus without complications; I10 Essential (primary) hypertension; E78.5 Hyperlipidemia, unspecified; M81.0 Age-related osteoporosis without current pathological fracture; M19.90 Unspecified osteoarthritis, unspecified site; E87.8 Other disorders of electrolyte and fluid balance, not elsewhere classified; Z90.49 Acquired absence of other specified parts of digestive tract; Z88.5 Allergy status to narcotic agent; Y92.009 Unspecified place in unspecified non-institutional (private) residence as the place of occurrence of the external cause
CPT/HCPCS: 82962; 92526-GN; 92610-GN; 97110-GP; G0378; J1200; J1644; J1815; J1885; J2270; J2405; J2930; J3490; J7030; J7042; Q0092